=== PATIENT | male | born 1990 | race Caucasian/White ===

== ENCOUNTER 2016-12-10 21:43 | Emergency (ER) | payer BC ==
[2016-12-10 21:51] VITALS: O2SAT 97
[2016-12-10] MEDS ORDERED: NORCO 5/325 MG PO ONE (22:05)
[2016-12-10] MEDS ORDERED: NORCO 5/325 MG ONE (22:08)
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
[2016-12-10 22:56] VITALS: BP 132/67; PULSE 86
--- NOTE | 2016-12-11 09:12 | XRAY ---
Indication: Left lower rib pain following sports injury. Comparison: None 2 views of the left ribs obtained. No bony, articular, or soft tissue abnormalities.
== END 2016-12-10 22:58 | disposition home or self-care (01) ==
LOC: ED 21:43
DX: S20.212A Contusion of left front wall of thorax, initial encounter (principal); W51.XXXA Accidental striking against or bumped into by another person, initial encounter; Y93.64 Activity, baseball; R07.81 Pleurodynia
CPT/HCPCS: 71100; 99283; A9270-GY

== ENCOUNTER 2017-01-07 22:08 | Emergency (ER) | payer BC ==
[2017-01-07] MEDS ORDERED: MORPHINE SULFATE 4 MG INJ IV ONE (23:13)
[2017-01-07] MEDS ORDERED: Phenergan 25 MG INJ IV ONE (23:13)
[2017-01-07] MEDS ORDERED: Sodium Chloride 0.9% 1000 ML 1,000 ML IV STA (23:13)
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
[2017-01-07] MEDS ORDERED: Phenergan 25 MG INJ ONE (23:27)
[2017-01-07] MEDS ORDERED: Sodium Chloride 0.9% 1000 ML 1,000 ML ONE (23:28)
[2017-01-07] MEDS ORDERED: MORPHINE SULFATE 4 MG INJ ONE (23:28)
[2017-01-07 23:41] LABS: Mean Cell Volume 94.1 fl (78-100); Mean Corpuscular Hemoglobin 30.9 pg (26-32); Mean Platelet Volume 11.1 fl (6-9.5); Platelet Count 225 K/mm3 (150-450); Red Cell Distribution Width 12.9 % (11.5-14.0); White Blood Count 17.5 K/mm3 (4.0-10.5)
[2017-01-07] MEDS ORDERED: ROCEPHIN 1 Gm-D5w 50 ml Bag** 1 G/50 ML IVPB IV STA (23:58)
[2017-01-08] MEDS ORDERED: ROCEPHIN 1 Gm-D5w 50 ml Bag** 1 G/50 ML IVPB IV ONE (00:01)
[2017-01-08 00:11] LABS: ALBUMIN 3.8 g/dL (3.4-5.0); ALKALINE PHOSPHATASE 59 U/L (46-116); ANION GAP 16.5 MEQ/L (5-15); BLOOD UREA NITROGEN 11 mg/dL (9-20); CHLORIDE 102 mEq/L (98-107); Carbon Dioxide 23.5 mEq/L (21-32); Glucose 121 MG/DL (70-110); LIPASE 67 U/L (73-393); Potassium 3.7 mEq/L (3.5-5.1); SGOT/AST 14 U/L (15-37); SGPT/ALT 19 U/L (12-78); SODIUM 138 mEq/L (136-145); Total Protein 7.3 gm/dL (6.4-8.2)
[2017-01-08] MEDS ORDERED: Zofran 4 MG/2 ML VIAL IV ONE (00:13)
[2017-01-08] MEDS ORDERED: MORPHINE SULFATE 4 MG INJ IV ONE (00:13)
[2017-01-08] MEDS ORDERED: Zofran 4 MG/2 ML VIAL ONE (00:28)
[2017-01-08] MEDS ORDERED: MORPHINE SULFATE 4 MG INJ ONE (00:28)
[2017-01-08 00:34] LABS: ADD URINE CULTURE? YES (NO); Bilirubin SMALL (NEGATIVE); COMPLETE URINE MICROSCOPIC? YES; Collection Type CLEAN CATCH; Glucose NEGATIVE (NEGATIVE); Leukocyte Esterase NEGATIVE (NEGATIVE)
[2017-01-08 00:35] LABS: Bacteria FEW /HPF (NEGATIVE); Epithelial Cells FEW /HPF (FEW); Mucus MODERATE /HPF (NEGATIVE)
[2017-01-08 00:42] VITALS: PULSE 90
[2017-01-08 01:01] VITALS: BP 119/63; O2SAT 99
[2017-01-08 02:08] LABS: ATYPICAL LYMPHS 4 %; Platelet Estimate NORMAL (NORMAL); Total Cells Counted 100
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
== END 2017-01-08 01:04 | disposition home or self-care (01) ==
LOC: ED 22:08
DX: J02.0 Streptococcal pharyngitis (principal); J03.00 Acute streptococcal tonsillitis, unspecified; R11.10 Vomiting, unspecified
CPT/HCPCS: 36000; 36415; 74022; 80053; 81000; 82150; 83690; 85025; 86308; 87040; 87086; 87430; 96360; 96365; 96374; 96375; 99284; J0696; J2270; J2405; J2550

== ENCOUNTER 2017-04-02 21:33 | Emergency (ER) | payer BC ==
[2013-01-08 21:29] VITALS: BP 124/87
== END 2017-04-02 22:23 | disposition left against medical advice (07) ==
LOC: ED 21:33
DX: Z53.9 Procedure and treatment not carried out, unspecified reason (principal)

== ENCOUNTER 2017-04-25 21:40 | Emergency (ER) | payer BC ==
[2017-04-25] MEDS ORDERED: DUONEB 0.5-3 MG/3 ml Neb IH ONE ×2 (22:13→22:22)
[2017-04-25] MEDS ORDERED: TORAdol 30 mg Injection IM ONE (22:17)
[2017-04-25] MEDS ORDERED: TORAdol 30 mg Injection ONE (22:21)
[2017-04-25 22:39] LABS: A-aADO2 7; ARTERIAL BLD GAS O2 SATURATION 98.2 % (95-100); ARTERIAL BLOOD GAS BASE EXCESS 4.6 (-2.0-2.0); ARTERIAL BLOOD GAS FIO2 21 %; ARTERIAL BLOOD GAS PO2 90 mmHg (75-100); ARTERIAL BLOOD GAS pH 7.45 (7.35-7.45)
[2017-04-25] MEDS ORDERED: SILVADENE 50 GM TP ONE ×2 (22:51→22:57)
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
[2017-04-25 23:11] VITALS: BP 134/86; PULSE 96; O2SAT 97
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
== END 2017-04-25 23:12 | disposition home or self-care (01) ==
LOC: ED 21:40
DX: T20.10XA Burn of first degree of head, face, and neck, unspecified site, initial encounter (principal); R06.02 Shortness of breath; X00.1XXA Exposure to smoke in uncontrolled fire in building or structure, initial encounter
CPT/HCPCS: 36600; 71020; 82375; 82803; 94640; 96372; 99284; J1885; A9270-GY

== ENCOUNTER 2017-06-16 17:08 | Emergency (ER) | payer BC ==
[2017-06-16] MEDS ORDERED: Sodium Chloride 0.9% 1000 ML 1,000 ML ONE (17:41)
[2017-06-16] MEDS ORDERED: TORAdol 30 mg Injection ONE (17:41)
[2017-06-16] MEDS ORDERED: BABY ASPIRIN 81 MG CHEW ONE (17:41)
[2017-06-16] MEDS: BABY ASPIRIN 81 MG CHEW PO ONE (17:42)
[2017-06-16] MEDS: TORAdol 30 mg Injection IV ONE (17:42)
--- NOTE | 2017-06-16 17:42 | ERPHSYRPT ---
- History of Present Illness Time Seen by Provider: 06/16/17 17:32 Source: patient Exam Limitations: no limitations Patient Subjective Stated Complaint: chest pain for one hour. states is a "6" and is sharp. denies any cough or any other symptoms at this time. Triage Nursing Assessment: ambulated to room per self. skin w/d, color normal, resp easy. holding chest at times. describes pain as a cramp and is sharp. no edema noted. heart tones regular. Physician History: This is a 27-year-old white male with history of GERD, hernia, degenerative disc disease, acid reflux, foraminal stenosis. Patient arrives with complaint of sharp pain left lateral chest symptoms for one hour states is constant but worse with deep breathing. He states it came on with no activity he states it definitely worse when he breathes he is not short of breath he has no coughs he has no nausea no vomiting. Past medical history includes GERD, hernia, degenerative disc disease, acid reflux, foraminal stenosis Past surgical history includes adenoids, hernia repair, orthopedic surgery, shoulder surgery. Social history positive for occasional alcohol use Timing/Duration: today (one hour prior to arrival) Severity: moderate Modifying Factors: Improves With: other (worse with deep breathing) Associated Symptoms: chest pain (sharp chest pain left lateral chest worse with deep breathing), No nausea, No vomiting, No abdominal pain, No shortness of breath, No heartburn, No diaphoresis, No cough, No chills, No fever, No headaches, No loss of appetite, No malaise, No rash, No syncope, No seizure, No weakness Allergies/Adverse Reactions: metaxalone [From Skelaxin] Adverse Reaction (Verified 06/16/17 17:20) Nausea Home Medications: Lansoprazole [Prevacid 24Hr] 15 mg PO DAILY 06/16/17 [History] Hx Tetanus, Diphtheria Vaccination/Date Given: Yes Hx Influenza Vaccination/Date Given: No Hx Pneumococcal Vaccination/Date Given: No - Review of Systems Constitutional: No Fever, No Chills Eyes: No Symptoms Ears, Nose, & Throat: No Symptoms Respiratory: Other (pain with deep breathing left lateral chest) Cardiac: Chest Pain (sharp chest pain worse with deep breathing left lateral chest) Abdominal/Gastrointestinal: No Abdominal Pain, No Nausea, No Vomiting, No Diarrhea Genitourinary Symptoms: No Dysuria Musculoskeletal: No Back Pain, No Neck Pain Skin: No Rash Neurological: No Dizziness, No Focal Weakness, No Sensory Changes Psychological: No Symptoms Endocrine: No Symptoms All Other Systems: Reviewed and Negative - Past Medical History Pertinent Past Medical History: Yes Neurological History: No Pertinent History ENT History: No Pertinent History Cardiac History: No Pertinent History Respiratory History: No Pertinent History Endocrine Medical History: No Pertinent History Musculoskeletal History: Degenerative Disk Disease, Fractures, Other GI Medical History: GERD, Hernia History: No Pertinent History Psycho-Social History: No Pertinent History Male Reproductive Disorders: No Pertinent History Other Medical History: ACID REFLUX. forametal stenosis - Past Surgical History Past Surgical History: Yes Neuro Surgical History: No Pertinent History Cardiac: No Pertinent History Respiratory: No Pertinent History Gastrointestinal: Hernia Repair Genitourinary: No Pertinent History Musculoskeletal: Orthopedic Surgery Male Surgical History: No Pertinent History Other Surgical History: shoulder - Social History Smoking Status: Current every day smoker How long have you smoked: 10 Exposure to second hand smoke: No Drug Use: none Patient Lives Alone: No - Nursing Vital Signs Nursing Vital Signs: Initial Vital Signs Temperature 98.1 F 06/16/17 17:12 Pulse Rate 98 H 06/16/17 17:12 Respiratory Rate 18 06/16/17 17:12 O2 Sat by Pulse Oximetry 100 06/16/17 17:12 Pain Scale Pain Intensity 9 - Physical Exam General Appearance: mild distress Eye Exam: PERRL/EOMI, eyes nml inspection Ears, Nose, Throat Exam: normal ENT inspection, TMs normal, pharynx normal, moist mucous membranes Neck Exam: normal inspection, non-tender, supple, full range of motion Respiratory Exam: normal breath sounds, other (pain with deep breathing left lateral chest) Cardiovascular Exam: regular rate/rhythm, normal heart sounds, normal peripheral pulses Gastrointestinal/Abdomen Exam: soft, normal bowel sounds, No tenderness, No mass Back Exam: normal inspection, normal range of motion, No CVA tenderness, No vertebral tenderness Extremity Exam: normal inspection, normal range of motion, pelvis stable Neurologic Exam: alert, oriented x 3, cooperative, control system manager II-XII nml as tested, normal mood/affect, nml cerebellar function, nml station & gait, sensation nml, No motor deficits Skin Exam: normal color, warm, dry, No rash Lymphatic Exam: No adenopathy SpO2 Interpretation: normal (100%) SpO2: 100 Oxygen Delivery: Room Air - Course Nursing assessment & vital signs reviewed: Yes EKG Interpreted by Me: RATE (95 bpm), Right [place] Deviation, Other (EKG: Sinus arrhythmia, 95 bpm, right axis deviation, no acute ST or T wave changes noted) Ordered Tests: Active Orders 24 hr Category Date Time Status Bearing Machine Operator STAT Care 06/16/17 17:37 Active EKG-ER Only STAT Care 06/16/17 17:36 Active IV Insertion STAT Care 06/16/17 17:36 Active CHEST 1 VIEW (PORTABLE) Stat Exams 06/16/17 17:37 Taken AMYLASE Stat Lab 06/16/17 17:43 Completed CBC W DIFF Stat Lab 06/16/17 17:43 Completed CMP Stat Lab 06/16/17 17:43 Completed D-DIMER QUANTITATION Stat Lab 06/16/17 17:43 Completed LIPASE Stat Lab 06/16/17 17:43 Completed TROPONIN Q3H Lab 06/16/17 17:43 Completed TROPONIN Q3H Lab 06/16/17 20:45 Ordered TROPONIN Q3H Lab 06/16/17 23:45 Ordered TROPONIN Q3H Lab 06/17/17 02:45 Ordered TROPONIN Q3H Lab 06/17/17 05:45 Ordered Medication Summary Generic Name Dose Route Start Last Admin Trade Name Freq PRN Reason Stop Dose Admin Sodium Chloride 1,000 mls @ 100 mls/hr 06/16/17 17:45 06/16/17 17:43 Sodium Chloride 0.9% 1000 Ml IV 07/16/17 17:44 100 mls/hr .Q10H FAVIAN Administration Discontinued Medications Generic Name Dose Route Start Last Admin Trade Name Freq PRN Reason Stop Dose Admin Aspirin 324 mg 06/16/17 17:36 06/16/17 17:42 Baby Aspirin 81 Mg Chew PO 06/16/17 17:37 324 mg STAT ONE Administration Aspirin Confirm 06/16/17 17:41 Baby Aspirin 81 Mg Chew Administered 06/16/17 17:42 Dose 324 mg .ROUTE .STK-MED ONE Ketorolac Tromethamine 30 mg 06/16/17 17:37 06/16/17 17:42 Toradol 30 Mg Injection IV 06/16/17 17:38 30 mg STAT ONE Administration Ketorolac Tromethamine Confirm 06/16/17 17:41 Toradol 30 Mg Injection Administered 06/16/17 17:42 Dose 30 mg .ROUTE .STK-MED ONE Morphine Sulfate 4 mg 06/16/17 18:08 06/16/17 18:12 Morphine Sulfate 4 Mg Inj IV 06/16/17 18:09 4 mg STAT ONE Administration Morphine Sulfate Confirm 06/16/17 18:12 Morphine Sulfate 4 Mg Inj Administered 06/16/17 18:13 Dose 4 mg .ROUTE .STK-MED ONE Lab/Rad Data: Laboratory Result Diagrams 06/16/17 17:43 06/16/17 17:43 Laboratory Results 06/16/17 06/16/17 06/16/17 Range/Units 17:43 17:43 17:43 WBC (4.0-10.5) K/mm3 RBC (4.1-5.6) M/mm3 Hgb (12.5-18.0) gm/dl Hct (42-50) % MCV (78-100) fl MCH (26-32) pg MCHC (32-36) g/dl RDW (11.5-14.0) % Plt Count (150-450) K/mm3 MPV (6-9.5) fl Gran % (36.0-66.0) % Lymphocytes % (24.0-44.0) % Monocytes % (0.0-12.0) % Eosinophils % (0.00-5.0) % Basophils % (0.0-0.4) % Basophils # (0-0.4) D-Dimer < 215 (0-500) ng/mL Sodium 139 (136-145) mEq/L Potassium 3.4 L (3.5-5.1) mEq/L Chloride 104 (98-107) mEq/L Carbon Dioxide 27.6 (21-32) mEq/L Anion Gap 10.7 (5-15) MEQ/L BUN 9 (9-20) mg/dL Creatinine 0.88 (0.55-1.30) mg/dl Estimated GFR > 60 ML/MIN Glucose 103 (70-110) MG/DL Calcium 9.0 (8.5-10.1) mg/dL Total Bilirubin 0.30 (0.2-1.0) mg/dL AST 18 (15-37) U/L ALT 22 (12-78) U/L Alkaline Phosphatase 40 L (46-116) U/L Troponin I < 0.017 (0.000-0.056) ng/ml Serum Total Protein 7.0 (6.4-8.2) gm/dL Albumin 3.8 (3.4-5.0) g/dL Amylase 58 (25-115) U/L Lipase 123 (73-393) U/L 06/16/17 Range/Units 17:43 WBC 8.7 (4.0-10.5) K/mm3 RBC 4.60 (4.1-5.6) M/mm3 Hgb 14.0 (12.5-18.0) gm/dl Hct 43.6 (42-50) % MCV 94.8 (78-100) fl MCH 30.4 (26-32) pg MCHC 32.1 (32-36) g/dl RDW 12.9 (11.5-14.0) % Plt Count 274 (150-450) K/mm3 MPV 10.5 H (6-9.5) fl Gran % 59.1 (36.0-66.0) % Lymphocytes % 26.0 (24.0-44.0) % Monocytes % 10.7 (0.0-12.0) % Eosinophils % 3.9 (0.00-5.0) % Basophils % 0.3 (0.0-0.4) % Basophils # 0.03 (0-0.4) D-Dimer (0-500) ng/mL Sodium (136-145) mEq/L Potassium (3.5-5.1) mEq/L Chloride (98-107) mEq/L Carbon Dioxide (21-32) mEq/L Anion Gap (5-15) MEQ/L BUN (9-20) mg/dL Creatinine (0.55-1.30) mg/dl Estimated GFR ML/MIN Glucose (70-110) MG/DL Calcium (8.5-10.1) mg/dL Total Bilirubin (0.2-1.0) mg/dL AST (15-37) U/L ALT (12-78) U/L Alkaline Phosphatase (46-116) U/L Troponin I (0.000-0.056) ng/ml Serum Total Protein (6.4-8.2) gm/dL Albumin (3.4-5.0) g/dL Amylase (25-115) U/L Lipase (73-393) U/L - Progress Progress: improved Progress Note: 06/16/17 19:02 27-year-old white male arrives with complaint of sharp pain left lateral chest worse with breathing occurred one hour prior to arrival. No shortness of breath no nausea no vomiting. Patient's EKG sinus arrhythmia at 95 beats for minute right axis deviation no acute ST or T wave changes noted d-dimer within normal limits at less than 215, troponin within normal limits CBC normal chest x-ray no acute disease process noted chemistry is remarkable for a potassium of 3.4 Patient was given IV normal saline, aspirin 324 mg orally Toradol 30 mg IV and morphine 4 mg IV. Patient is improved but still has some pain in the left lateral chest definitely worse with breathing. I have offered to obtain a repeat troponin on this patient 3 hours after last draw and have told him I cannot completely rule out cardiac etiology without doing this. The patient states he really doesn't think he has any chest pain and he does not want to stay for repeat troponin, Will plan to discharge patient with Arg[place] for pain plenty of fluids he will be given 20 mEq of potassium here in the emergency room, Patient is stable, - Departure Time of Disposition: 19:04 Departure Disposition: Home Clinical Impression: Non-cardiac chest pain, Pleurisy, mild hypokalemia Condition: Fair Critical Care Time: No Referrals: NAVIN FUCHS MD [Primary Care Provider] - Additional Instructions: Return home. Plenty of fluids. Arg[place] 5/325 #12 one orally every 4-6 hours as needed for pain. Increase potassium in your diet i.e. bananas. Follow-up with your family doctor. Return for acute distress or for severe symptoms. Prescriptions: Hydrocodone/Acetaminophen [Arg[place] 5-325 Tablet] 1 tab PO Q4-6HPRN PRN #12 tablet MDD 6 tablets PRN Reason: pain
[2017-06-16] MEDS: Sodium Chloride 0.9% 1000 ML 1,000 ML IV SCH (17:43)
[2017-06-16 17:53] LABS: BASOPHIL % 0.3 % (0.0-0.4); Basophil (Absolute #) 0.03 (0-0.4); Eosinophil % 3.9 % (0.00-5.0); Eosinophil (Absolute #) 0.34 (0-0.5); Granulocyte Absolute (ANC) 5.13 (1.4-6.9); Granulocytes % 59.1 % (36.0-66.0); Hematocrit 43.6 % (42-50); Lymphocyte (Absolute #) 2.26 (1.0-4.6); Mean Cell Volume 94.8 fl (78-100); Mean Corpuscular Hemoglobin 30.4 pg (26-32); Mean Corpuscular Hgb Concent. 32.1 g/dl (32-36); Mean Platelet Volume 10.5 fl (6-9.5); Monocyte (Absolute #) 0.93 (0.0-1.3); Monocytes % 10.7 % (0.0-12.0); Platelet Count 274 K/mm3 (150-450); Red Cell Distribution Width 12.9 % (11.5-14.0); White Blood Count 8.7 K/mm3 (4.0-10.5)
[2017-06-16 18:09] VITALS: BP 118/76; PULSE 82
[2017-06-16] MEDS: MORPHINE SULFATE 4 MG INJ IV ONE (18:12)
[2017-06-16] MEDS ORDERED: MORPHINE SULFATE 4 MG INJ ONE (18:12)
[2017-06-16 18:21] LABS: ALBUMIN 3.8 g/dL (3.4-5.0); ALKALINE PHOSPHATASE 40 U/L (46-116); AMYLASE 58 U/L (25-115); ANION GAP 10.7 MEQ/L (5-15); BLOOD UREA NITROGEN 9 mg/dL (9-20); CHLORIDE 104 mEq/L (98-107); Carbon Dioxide 27.6 mEq/L (21-32); Creatinine 1 0.88 mg/dl (0.55-1.30); EST GLOMERULAR FILTRATION RATE > 60 ML/MIN; Glucose 103 MG/DL (70-110); LIPASE 123 U/L (73-393); Potassium 3.4 mEq/L (3.5-5.1); SGOT/AST 18 U/L (15-37); SGPT/ALT 22 U/L (12-78); SODIUM 139 mEq/L (136-145)
[2017-06-16 19:07] VITALS: O2SAT 100
[2017-06-16] MEDS ORDERED: Klor Con 10 MEQ PO ONE (19:19)
[2017-06-16] MEDS ORDERED: NORCO 5/325 MG ONE (19:20)
[2017-06-16] MEDS: Klor Con 10 MEQ PO ONE (19:23)
[2017-06-16] MEDS: NORCO 5/325 MG PO ONE (19:23)
--- NOTE | 2017-06-17 08:39 | XRAY ---
Indication: Chest pain. Comparison: April 25, 2017. Portable chest again demonstrates normal heart, lungs, and bony thorax with incidental left lung calcified granuloma.
== END 2017-06-16 19:50 | disposition home or self-care (01) ==
LOC: ED 17:08
DX: R07.89 Other chest pain (principal); R09.1 Pleurisy; E87.6 Hypokalemia; K21.9 Gastro-esophageal reflux disease without esophagitis
CPT/HCPCS: 36000; 36415; 71045; 80053; 82150; 83690; 84484; 85025; 85379; 93005; 93041; 96360; 96374; 96375; 99284; J1885; J2270; A9270-GY

== ENCOUNTER 2017-11-29 20:43 | Emergency (ER) | payer BC, OTHER ==
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
[2017-11-29] MEDS ORDERED: BACIGUENT PACKET TP ONE (21:17)
[2017-11-29] MEDS ORDERED: TORAdol 30 mg Injection IM ONE (21:17)
[2017-11-29] MEDS ORDERED: TORAdol 30 mg Injection ONE (21:19)
[2017-11-29] MEDS ORDERED: BACIGUENT PACKET ONE (21:19)
[2017-11-29 21:43] VITALS: BP 123/79
[2017-11-29] MEDS ORDERED: NORCO 5/325 MG PO ONE (21:44)
[2017-11-29 21:56] VITALS: PULSE 88; O2SAT 100
[2017-11-29] MEDS ORDERED: NORCO 5/325 MG ONE (21:56)
== END 2017-11-29 22:01 | disposition home or self-care (01) ==
LOC: ED 20:43
DX: T22.112A Burn of first degree of left forearm, initial encounter (principal); X19.XXXA Contact with other heat and hot substances, initial encounter; Y93.89 Activity, other specified; Y99.0 Civilian activity done for income or pay
CPT/HCPCS: 96372; 99283; J1885; A9270-GY

== ENCOUNTER 2018-08-14 18:05 | Emergency (ER) | payer BC ==
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
[2018-08-14] MEDS ORDERED: MOTRIN 600 MG ONE (19:12)
[2018-08-14] MEDS: MOTRIN 600 MG PO ONE (19:13)
[2018-08-14 19:22] VITALS: BP 130/67; PULSE 70; O2SAT 97
--- NOTE | 2018-08-15 08:38 | XRAY ---
Indication: Pain. Third finger laceration following mower injury. Comparison: None. 3 views of the right wrist obtained. No bony, articular, or soft tissue abnormalities.
--- NOTE | 2018-08-15 08:41 | XRAY ---
Indication: Third finger laceration following mower injury. Comparison: October 05, 2011. 3 views of the right hand obtained. No bony, articular, or soft tissue abnormalities.
== END 2018-08-14 19:26 | disposition home or self-care (01) ==
LOC: ED 18:05
DX: S60.221A Contusion of right hand, initial encounter (principal); S66.911A Strain of unspecified muscle, fascia and tendon at wrist and hand level, right hand, initial encounter; W22.8XXA Striking against or struck by other objects, initial encounter; M79.89 Other specified soft tissue disorders; S60.410A Abrasion of right index finger, initial encounter; M79.641 Pain in right hand; K21.9 Gastro-esophageal reflux disease without esophagitis
CPT/HCPCS: 29126; 73110; 73130; 99284; A9270-GY

== ENCOUNTER 2018-11-10 01:07 | Emergency (ER) | payer BC, MEDICAID ==
--- NOTE | 2018-11-10 01:19 | ERPHSYRPT ---
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 pt able to walk on it but hurts to do so. Method of Injury: direct blow (from a dropped cinder block) Occurred: hours ago (4) Quality: aching, throbbing Severity of Pain-Max: moderate Severity of Pain-Current: moderate Lower Extremities Pain: foot: right Modifying Factors: Improves With: movement Associated Symptoms: other (hurts to bear weight) Allergies/Adverse Reactions: metaxalone [From Skelaxin] Adverse Reaction (Verified 11/10/18 01:11) Nausea Home Medications: Famotidine [Pepcid AC] 10 mg PO DAILY 07/17/18 [History] Omeprazole 10 mg PO DAILY 07/17/18 [History] Hx Tetanus, Diphtheria Vaccination/Date Given: Yes Hx Influenza Vaccination/Date Given: No Hx Pneumococcal Vaccination/Date Given: No - Review of Systems Constitutional: No Symptoms Eyes: No Symptoms Ears, Nose, & Throat: No Symptoms Respiratory: No Symptoms Cardiac: No Symptoms Abdominal/Gastrointestinal: No Symptoms Genitourinary Symptoms: No Symptoms Musculoskeletal: Injury ( right foot) Skin: No Symptoms Neurological: No Symptoms Psychological: No Symptoms Endocrine: No Symptoms Hematologic/Lymphatic: No Symptoms Immunological/Allergic: No Symptoms All Other Systems: Reviewed and Negative - Past Medical History Pertinent Past Medical History: Yes Neurological History: No Pertinent History ENT History: No Pertinent History Cardiac History: No Pertinent History Respiratory History: No Pertinent History Endocrine Medical History: No Pertinent History Musculoskeletal History: Degenerative Disk Disease, Fractures, Other GI Medical History: GERD, Hernia History: No Pertinent History Psycho-Social History: No Pertinent History Male Reproductive Disorders: No Pertinent History Other Medical History: ACID REFLUX. forametal stenosis - Past Surgical History Past Surgical History: Yes Neuro Surgical History: No Pertinent History Cardiac: No Pertinent History Respiratory: No Pertinent History Gastrointestinal: Hernia Repair Genitourinary: No Pertinent History Musculoskeletal: Orthopedic Surgery Male Surgical History: No Pertinent History Other Surgical History: shoulder - Social History Smoking Status: Current every day smoker How long have you smoked: 12 years Exposure to second hand smoke: No Drug Use: none Patient Lives Alone: No - Nursing Vital Signs Nursing Vital Signs: Initial Vital Signs Temperature 98.6 F 11/10/18 01:12 Pulse Rate 99 H 11/10/18 01:12 Respiratory Rate 18 11/10/18 01:12 Blood Pressure 147/89 11/10/18 01:12 O2 Sat by Pulse Oximetry 99 11/10/18 01:12 Pain Scale Pain Intensity 7 - Physical Exam General Appearance: mild distress, alert, anxiety Eyes, Ears, Nose, Throat Exam: normal ENT inspection, moist mucous membranes Neck Exam: normal inspection, non-tender, supple, full range of motion Cardiovascular/Respiratory Exam: chest non-tender Gastrointestinal/Abdominal Exam: non-tender Back Exam: normal inspection, normal range of motion, No CVA tenderness, No vertebral tenderness Hips Exam: bilateral: non-tender, normal inspection, normal range of motion, no evidence of injury Legs Exam: bilateral leg: non-tender, normal inspection, normal range of motion , no evidence of injury Knees Exam: bilateral knee: non-tender, normal inspection, normal range of motion, no evidence of injury Ankle Exam: bilateral ankle: non-tender, normal inspection, normal range of motion, no evidence of injury Foot Exam: right foot: ecchymosis, limited range of motion, soft tissue tenderness, swelling, left foot: non-tender, normal inspection, normal range of motion, no evidence of injury Neuro/Tendon Exam: normal sensation, normal motor functions, normal tendon functions, responds to pain Mental Status Exam: alert, oriented x 3, cooperative Skin Exam: ecchymosis SpO2 Interpretation: normal O2 Delivery: Room Air Ordered Tests: Active Orders 24 hr Category Date Time Status FOOT (MINIMUM 3 VIEWS) Stat Exams 11/10/18 01:20 Taken Medication Summary Discontinued Medications Generic Name Dose Route Start Last Admin Trade Name Luiz PRN Reason Stop Dose Admin Oxycodone/Acetaminophen 1 tab 11/10/18 01:23 11/10/18 01:24 Percocet Tablet 5/325mg PO 11/10/18 01:24 1 tab STAT STA Administration Oxycodone/Acetaminophen Confirm 11/10/18 01:24 Percocet Tablet 5/325mg Administered 11/10/18 01:25 Dose 1 tab .ROUTE .STK-MED ONE - Progress Progress: improved Progress Note: 11/10/18 02:32 night radiology read-no acute process Counseled pt/family regarding: diagnosis, need for follow-up, rad results - Departure Departure Disposition: Home Clinical Impression: Contusion, foot Condition: Stable Critical Care Time: No Referrals: NAVIN FUCHS MD [Primary Care Provider] - Additional Instructions: ice pack to area 3 times daily for 3 days. add ibuprofen or naproxen for pain with food. follow up with primary doctor for persistent symptoms Prescriptions: Oxycodone HCl/Acetaminophen [Percocet 5-325 mg Tablet] 1 each PO Q12H PRN PRN # 6 tablet MDD 2 PRN Reason: Pain
[2018-11-10] MEDS ORDERED: PERCOCET TABLET 5/325MG PO STA (01:23)
[2018-11-10] MEDS ORDERED: PERCOCET TABLET 5/325MG ONE (01:24)
[2018-11-10 02:29] VITALS: BP 133/90; PULSE 93; O2SAT 97
--- NOTE | 2018-11-10 09:40 | XRAY ---
Exam: 3 view right foot exam from 11/10/2018. Comparison: Two-view left foot series from 08/16/2015. Indication: 28-year-old male with injury/trauma, patient's foot crushed by cinderblock, injury on 11/09/2018, difficult to bear weight. Findings: AP, oblique, and lateral radiographs of the left foot were obtained. I see no acute right foot fracture or dislocation. Metatarsals are aligned correctly with the metatarsals on all images. 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 There is a normal plantar arch. No radiopaque soft tissue foreign body is seen. The joint spaces appear unremarkable. Impression: 1. No acute fracture or dislocation of the right foot is seen.
== END 2018-11-10 02:43 | disposition home or self-care (01) ==
LOC: ED 01:07
DX: S90.31XA Contusion of right foot, initial encounter (principal); W20.8XXA Other cause of strike by thrown, projected or falling object, initial encounter; Y93.89 Activity, other specified
CPT/HCPCS: 73630; 99283; A9270-GY

== ENCOUNTER 2018-12-11 13:10 | Emergency (ER) | payer MEDICAID ==
--- NOTE | 2018-12-11 13:27 | ERPHSYRPT ---
- History of Present Illness Time Seen by Provider: 12/11/18 13:23 Source: patient Physician History: This is a 28-year-old white male with history of degenerative disc disease, fractures, GERD, hernia, acid reflux, or foraminal stenosis. Patient arrives with complaint of pain on his left posterior lateral hip and pelvis, pain in his left ankle pain in his left foot symptoms since 30 minutes. According to patient he felt approximately 10 feet off a ladder apparently he bounced onto the ladder which was between him and his leg he complains of pain in the left ankle foot and left hip. Past medical history includes degenerative disc disease, fractures, GERD, hernia , acid reflux, foraminal stenosis Past surgical history includes hernias repair, shoulder surgery Social history positive tobacco occasional alcohol denies illicit drug use. Timing/Duration: today (330 minutes prior to arri) Severity: moderate Modifying Factors: Improves With: nothing Associated Symptoms: No nausea, No vomiting, No abdominal pain, No shortness of breath, No heartburn, No cough, No chills, No chest pain, No fever, No headaches , No loss of appetite, No malaise, No rash, No syncope, No seizure, No weakness Allergies/Adverse Reactions: metaxalone [From Skelaxin] Adverse Reaction (Verified 12/11/18 13:28) Nausea Home Medications: Omeprazole 10 mg PO DAILY 07/17/18 [History] Hx Tetanus, Diphtheria Vaccination/Date Given: Yes Hx Influenza Vaccination/Date Given: No Hx Pneumococcal Vaccination/Date Given: No - Review of Systems Constitutional: No Fever, No Chills Eyes: No Symptoms Ears, Nose, & Throat: No Symptoms Respiratory: No Cough, No Dyspnea Cardiac: No Chest Pain, No Edema, No Syncope Abdominal/Gastrointestinal: No Abdominal Pain, No Nausea, No Vomiting, No Diarrhea Genitourinary Symptoms: No Dysuria Musculoskeletal: Fall, Other (pain in left posterior hip, and pelvis, , left ankle left foot) Skin: No Rash Neurological: No Dizziness, No Focal Weakness, No Sensory Changes Psychological: No Symptoms Endocrine: No Symptoms All Other Systems: Reviewed and Negative - Past Medical History Pertinent Past Medical History: Yes Neurological History: No Pertinent History ENT History: No Pertinent History Cardiac History: No Pertinent History Respiratory History: No Pertinent History Endocrine Medical History: No Pertinent History Musculoskeletal History: Degenerative Disk Disease, Fractures, Other GI Medical History: GERD, Hernia History: No Pertinent History Psycho-Social History: No Pertinent History Male Reproductive Disorders: No Pertinent History Other Medical History: ACID REFLUX. forametal stenosis - Past Surgical History Past Surgical History: Yes Neuro Surgical History: No Pertinent History Cardiac: No Pertinent History Respiratory: No Pertinent History Gastrointestinal: Hernia Repair Genitourinary: No Pertinent History Musculoskeletal: Orthopedic Surgery Male Surgical History: No Pertinent History Other Surgical History: shoulder - Social History Smoking Status: Current every day smoker How long have you smoked: 12 years Exposure to second hand smoke: No Drug Use: none Patient Lives Alone: No - Nursing Vital Signs Nursing Vital Signs: Initial Vital Signs Temperature 98.0 F 12/11/18 13:15 Pulse Rate 86 12/11/18 13:15 Blood Pressure 131/78 12/11/18 13:15 O2 Sat by Pulse Oximetry 97 12/11/18 13:15 Pain Scale Pain Intensity 7 - Physical Exam General Appearance: mild distress, alert Eye Exam: PERRL/EOMI Ears, Nose, Throat Exam: normal ENT inspection, TMs normal, pharynx normal, moist mucous membranes Neck Exam: normal inspection, non-tender, supple, full range of motion Respiratory Exam: normal breath sounds, lungs clear, No respiratory distress Cardiovascular Exam: regular rate/rhythm, normal heart sounds, normal peripheral pulses, capillary refill <2 sec Gastrointestinal/Abdomen Exam: soft, normal bowel sounds, No tenderness, No mass Back Exam: normal inspection, normal range of motion, No CVA tenderness, No vertebral tenderness Extremity Exam: other (Pain with palpation left posterior hip and buttocks, , pain with palpation and movenent left ankle and dorsal foot) Neurologic Exam: alert, oriented x 3, cooperative, desk officer II-XII nml as tested, normal mood/affect, nml cerebellar function, nml station & gait, sensation nml, No motor deficits Skin Exam: normal color, warm, dry, No rash Lymphatic Exam: No adenopathy SpO2 Interpretation: normal - Course Nursing assessment & vital signs reviewed: Yes - Radiology Exams Left Hip X-ray Interpretation: Discussed w/ radiologist, Negative, No Fracture, No Subluxation Left Ankle X-ray Interpretation: Discussed w/ radiologist, Negative, No Subluxation Left Foot X-ray Interpretation: Discussed w/ radiologist, Negative, No Fracture, No Subluxation Ordered Tests: Active Orders 24 hr Category Date Time Status Crutches STAT Care 12/11/18 14:35 Active Splint STAT Care 12/11/18 14:35 Active ANKLE (3 VIEWS) Stat Exams 12/11/18 13:22 Completed FOOT (MINIMUM 3 VIEWS) Stat Exams 12/11/18 13:22 Completed HIP UNI (2V) INCL PEL IF DONE Stat Exams 12/11/18 13:22 Completed Medication Summary Discontinued Medications Generic Name Dose Route Start Last Admin Trade Name Luiz PRN Reason Stop Dose Admin Ketorolac Tromethamine 60 mg 12/11/18 13:30 12/11/18 13:34 Toradol 30 Mg Injection IM 12/11/18 13:31 60 mg STAT ONE Administration Ketorolac Tromethamine Confirm 12/11/18 13:31 Toradol 30 Mg Injection Administered 12/11/18 13:32 Dose 60 mg .ROUTE .STK-MED ONE - Progress Progress: improved Progress Note: 12/11/18 14:36 X-ray left hip and pelvis, left ankle, left foot, all negative Will place air cast left ankle give patient crutches small amount of [place] for pain. - Departure Departure Disposition: Home Clinical Impression: Left foot pain Accidental fall Qualifiers: Encounter type: initial encounter Qualified Code(s): W19.XXXA - Unspecified fall, initial encounter Contusion of left hip Qualifiers: Encounter type: initial encounter Qualified Code(s): S70.02XA - Contusion of left hip, initial encounter Left ankle strain Qualifiers: Encounter type: initial encounter Qualified Code(s): S96.912A - Strain of unspecified muscle and tendon at ankle and foot level, left foot, initial encounter Condition: Fair Critical Care Time: No Referrals: NAVIN FUCHS MD [Primary Care Provider] - Instructions: Contusion (DC), Preventing Falls Additional Instructions: Return home. Ice and elevate left hip left ankle left foot 24-48 hours. Crutches weightbearing as tolerated. [place] as prescribed for pain. Followup with your family doctor if symptoms are worse, no better in 48-72 hours , or persist longer than 1 week. Return for acute distress or for severe symptoms. Prescriptions: Hydrocodone/APAP 5-325 Tab^^^ [[place] 5-325 Tablet^^^] 1 tab PO Q6HPRN PRN #10 tablet MDD 6 PRN Reason: Pain
[2018-12-11] MEDS ORDERED: TORAdol 30 mg Injection IM ONE (13:30)
[2018-12-11] MEDS ORDERED: TORAdol 30 mg Injection ONE (13:31)
--- NOTE | 2018-12-11 14:29 | XRAY ---
Indication: Pain following 10 feet fall. Comparison: None AP pelvis and 2 views of the left hip obtained. No bony, articular, or soft tissue abnormalities.
--- NOTE | 2018-12-11 14:31 | XRAY ---
Indication: Pain following 10 feet fall. Comparison: August 16, 2015 3 nonweightbearing views of the left foot obtained. No bony, articular, or soft tissue abnormalities.
--- NOTE | 2018-12-11 14:31 | XRAY ---
Indication: Pain following 10 feet fall. Comparison: None 3 views of the left ankle obtained. No bony, articular, or soft tissue abnormalities.
[2018-12-11 14:50] VITALS: BP 111/64; PULSE 80; O2SAT 94
== END 2018-12-11 14:58 | disposition home or self-care (01) ==
LOC: ED 13:10
DX: S70.02XA Contusion of left hip, initial encounter (principal); S96.912A Strain of unspecified muscle and tendon at ankle and foot level, left foot, initial encounter; M25.552 Pain in left hip; W19.XXXA Unspecified fall, initial encounter
CPT/HCPCS: 73502; 73610; 73630; 96372; 99284; J1885

== ENCOUNTER 2018-12-14 21:11 | Emergency (ER) | payer MEDICAID ==
[2018-12-14] MEDS ORDERED: TYLENOL 325 MG PO ONE (21:36)
[2018-12-14] MEDS ORDERED: BACIGUENT PACKET TP ONE (21:37)
[2018-12-14] MEDS ORDERED: Adacel Vial IM ONE ×2 (21:37→21:47)
[2018-12-14] MEDS ORDERED: XYLOCAINE 1% HCL 20 ML MDV IJ ONE (21:37)
--- NOTE | 2018-12-14 21:42 | ERPHSYRPT ---
- History of Present Illness Time Seen by Provider: 12/14/18 21:32 Source: patient Exam Limitations: no limitations Patient Subjective Stated Complaint: pt states he hit his head on the corner of the cabinet about 2 hours ago. states he has been having buring and throbbing pain and bleeding has not completely stopped Triage Nursing Assessment: pt alert and oreinted, answers questions approp. pt ambulatory with steady gait noted, respirasions nonlabored with lungs cta. pupils equal and reacitive, bilat upper and lower ext strength equal and wnl. laceration to rt head approx 2 cm with no acitve bleeding at this time. Physician History: 28-year-old white male arrives with complaint of a 3 cm flap laceration to his right frontal temporal region symptoms for approximately 2 hours patient states he stood up and struck his head on a countertop he states he came in because he had bleeding from the area patient denies loss of consciousness he does state that he has a headache he has had no neurologic changes. Past medical history includes degenerative disc disease, fractures, GERD, hernia , acid reflux, foraminal stenosis. Past surgical history includes hernia repair, shoulder surgery Patient does say that he had 3 mics hard lemonade prior to arrival. . Timing/Duration: today Severity: moderate Modifying Factors: Improves With: ibuprofen. Worsens With: eating, immobilization, medication, movement, rest, acetaminophen, nothing Associated Symptoms: headaches, No nausea, No vomiting, No abdominal pain, No shortness of breath, No heartburn, No diaphoresis, No cough, No chills, No chest pain, No fever, No loss of appetite, No malaise, No rash, No syncope, No seizure, No weakness Allergies/Adverse Reactions: metaxalone [From Skelaxin] Adverse Reaction (Verified 12/14/18 21:27) Nausea Home Medications: Omeprazole 10 mg PO DAILY 07/17/18 [History] Hx Tetanus, Diphtheria Vaccination/Date Given: Yes Hx Influenza Vaccination/Date Given: No Hx Pneumococcal Vaccination/Date Given: No Immunizations Up to Date: Yes - Review of Systems Constitutional: Other (laceration right frontal temporial region), No Fever, No Chills Eyes: No Symptoms, Other (patient states he has blurry vision right eye from watering) Ears, Nose, & Throat: No Symptoms Respiratory: No Cough, No Dyspnea Cardiac: No Chest Pain, No Edema, No Syncope Abdominal/Gastrointestinal: No Abdominal Pain, No Nausea, No Vomiting, No Diarrhea Genitourinary Symptoms: No Dysuria Musculoskeletal: No Back Pain, No Neck Pain Skin: Other (3 cm flap laceration right frontal temporal region) Neurological: Headache, No Dizziness, No Focal Weakness, No Gait Changes, No Irritability, No Lethargy, No Paralysis, No Parasthesia, No Seizure, No Sensory Changes, No Speech Changes, No Tics, No Tremors, No Vertigo Psychological: No Symptoms Endocrine: No Symptoms All Other Systems: Reviewed and Negative - Past Medical History Pertinent Past Medical History: Yes Neurological History: No Pertinent History ENT History: No Pertinent History Cardiac History: No Pertinent History Respiratory History: No Pertinent History Endocrine Medical History: No Pertinent History Musculoskeletal History: Degenerative Disk Disease, Fractures, Other GI Medical History: GERD, Hernia History: No Pertinent History Psycho-Social History: No Pertinent History Male Reproductive Disorders: No Pertinent History Other Medical History: ACID REFLUX. forametal stenosis - Past Surgical History Past Surgical History: Yes Neuro Surgical History: No Pertinent History Cardiac: No Pertinent History Respiratory: No Pertinent History Gastrointestinal: Appendectomy, Hernia Repair Genitourinary: No Pertinent History Musculoskeletal: Orthopedic Surgery Male Surgical History: No Pertinent History Other Surgical History: shoulder - Social History Smoking Status: Current every day smoker How long have you smoked: 12 years Exposure to second hand smoke: No Drug Use: none Patient Lives Alone: No - Nursing Vital Signs Nursing Vital Signs: Initial Vital Signs Temperature 98.6 F 12/14/18 21:18 Pulse Rate 103 H 12/14/18 21:18 Respiratory Rate 18 12/14/18 21:18 Blood Pressure 136/80 12/14/18 21:18 O2 Sat by Pulse Oximetry 96 12/14/18 21:18 Pain Scale Pain Intensity 7 - Physical Exam General Appearance: mild distress, alert, other (head with 3 cm flap laceration right frontotemporal region) Eye Exam: PERRL/EOMI, eyes nml inspection, other (fundi unremarkable) Ears, Nose, Throat Exam: normal ENT inspection, TMs normal, pharynx normal, moist mucous membranes Neck Exam: normal inspection, non-tender, supple, full range of motion Respiratory Exam: normal breath sounds, lungs clear, No respiratory distress Cardiovascular Exam: regular rate/rhythm, normal heart sounds, normal peripheral pulses, capillary refill <2 sec Gastrointestinal/Abdomen Exam: soft, normal bowel sounds, No tenderness, No mass Back Exam: normal inspection, normal range of motion, No CVA tenderness, No vertebral tenderness Extremity Exam: normal inspection, normal range of motion, pelvis stable Neurologic Exam: alert, oriented x 3, cooperative, director instrumentation II-XII nml as tested, normal mood/affect, nml cerebellar function, nml station & gait, sensation nml, other (patient alert, oriented x3,, no facial droop, speech normal, normal finger to nose, rn angiography equal and symmetrical 5 over 5, full range of motion all extremities, sensation intact to all extremities, GCS equals 15.), No motor deficits Skin Exam: other (3 cm flap laceration right frontal temporal region) SpO2 Interpretation: normal (96%) SpO2: 96 - Course Nursing assessment & vital signs reviewed: Yes Ordered Tests: Active Orders 24 hr Category Date Time Status Prepare for Sutures STAT Care 12/14/18 21:37 Active Sutures STAT Care 12/14/18 21:37 Active Wound Care STAT Care 12/14/18 21:37 Active Medication Summary Discontinued Medications Generic Name Dose Route Start Last Admin Trade Name Freq PRN Reason Stop Dose Admin Acetaminophen 650 mg 12/14/18 21:36 Tylenol 325 Mg PO 12/14/18 21:37 STAT ONE Acetaminophen Confirm 12/14/18 21:47 Tylenol 325 Mg Administered 12/14/18 21:48 Dose 650 mg .ROUTE .STK-MED ONE Bacitracin Zinc 0.9 gm 12/14/18 21:37 Baciguent Packet TP 12/14/18 21:38 STAT ONE Bacitracin Zinc Confirm 12/14/18 21:47 Baciguent Packet Administered 12/14/18 21:48 Dose 1 gm .ROUTE .STK-MED ONE Diphtheria/Tetanus/Acell Pertussis 0.5 ml 12/14/18 21:37 Adacel Vial IM 12/14/18 21:38 .ONCE ONE Diphtheria/Tetanus/Acell Pertussis Confirm 12/14/18 21:47 Adacel Vial Administered 12/14/18 21:48 Dose 0.5 ml IM .STK-MED ONE Lidocaine HCl 5 ml 12/14/18 21:37 Xylocaine 1% Hcl 20 Ml Mdv IJ 12/14/18 21:38 STAT ONE Lidocaine HCl Confirm 12/14/18 21:47 Xylocaine 1% Hcl 20 Ml Mdv Administered 12/14/18 21:48 Dose 5 ml .ROUTE .STK-MED ONE - Progress Progress: improved Progress Note: 12/14/18 22:07 3 cm laceration repair right frontal temporal region. Laceration sterilely prepped and draped. Laceration anesthetized with 1% lidocaine. Laceration repaired with 4 5.0 Prolene sutures(interrupted) Also with Steri-Strip medial portion of the laceration times one. Bacitracin applied to the laceration were sutures were. - Departure Departure Disposition: Home Clinical Impression: Facial laceration Qualifiers: Encounter type: initial encounter Qualified Code(s): S01.81XA - Laceration without foreign body of other part of head, initial encounter Head contusion Qualifiers: Encounter type: initial encounter Contusion of head detail: unspecified part of head Qualified Code(s): S00.93XA - Contusion of unspecified part of head, initial encounter Condition: Fair Critical Care Time: No Referrals: NAVIN FUCHS MD [Primary Care Provider] - Instructions: Closed Head Injury (DC) Additional Instructions: Return home. May apply bacitracin to area where sutures are not to area of Steri-Strip until healed. Sutures out in 5 days. Followup with your family DrCarolyn or return if problems. Tylenol every 4 hours as needed for headache. Return for acute distress or for severe symptoms.
[2018-12-14] MEDS ORDERED: XYLOCAINE 1% HCL 20 ML MDV ONE (21:47)
[2018-12-14] MEDS ORDERED: BACIGUENT PACKET ONE (21:47)
[2018-12-14] MEDS ORDERED: TYLENOL 325 MG ONE (21:47)
[2018-12-14 23:21] VITALS: BP 112/71; PULSE 49; O2SAT 97
== END 2018-12-14 23:20 | disposition home or self-care (01) ==
LOC: ED 21:11
DX: S01.81XA Laceration without foreign body of other part of head, initial encounter (principal); S00.93XA Contusion of unspecified part of head, initial encounter; W22.03XA Walked into furniture, initial encounter
CPT/HCPCS: 12013; 90471; 90715; 96372; 99284; A9270-GY

== ENCOUNTER 2019-03-12 09:14 | Emergency (ER) | payer SELFPAY ==
[2019-03-12 09:24] VITALS: BP 118/78; PULSE 93; O2SAT 98
[2019-03-12] MEDS ORDERED: TETRACAINE 0.5% STERI-UNIT SOL OP ONE (09:28)
[2019-03-12] MEDS ORDERED: Fluor-I-Strip/Ful-Flo OP ONE ×2 (09:30→09:33)
--- NOTE | 2019-03-12 09:51 | ERPHSYRPT ---
- History of Present Illness Time Seen by Provider: 03/12/19 09:31 Source: patient Exam Limitations: no limitations Patient Subjective Stated Complaint: Pt was up in a tree hunting and he thinks a small branch got stuck on his hat and swung around and went into his right eye , eye is red and swollen, reports that his head is hurting Triage Nursing Assessment: Pt walked into the ER holding his right eye, can not open it without severe pain and burning, vitals wnl, rates pain 8/10 Physician History: Right eye injury with tree branch, while hunting. Timing/Duration: today Location: right eye Severity: moderate Apparent Injury: yes Associated Symptoms: pain, burning, sensitivity to light, redness, eyelid swelling, foreign body sensation, blurred vision Visual Assistive Devices: None Chemical Exposure: No Allergies/Adverse Reactions: metaxalone [From Skelaxin] Adverse Reaction (Verified 03/12/19 09:24) Nausea Home Medications: Quetiapine Fumarate 100 mg [Seroquel 100 MG] 100 mg PO DAILY 03/12/19 [ History] Hx Tetanus, Diphtheria Vaccination/Date Given: Yes Hx Influenza Vaccination/Date Given: No Hx Pneumococcal Vaccination/Date Given: No - Review of Systems Constitutional: No Fever, No Chills Eyes: Eye Pain, Eye Redness, Photophobia, Tearing, Foreign Body Sensation ( Right eye- Painful, tearing, Erythema roght upper and lower eye lids) Ears, Nose, & Throat: No Symptoms Respiratory: No Cough, No Dyspnea Cardiac: No Chest Pain, No Edema, No Syncope Abdominal/Gastrointestinal: No Abdominal Pain, No Nausea, No Vomiting, No Diarrhea Genitourinary Symptoms: No Dysuria Musculoskeletal: No Back Pain, No Neck Pain Skin: No Rash Neurological: No Dizziness, No Focal Weakness, No Sensory Changes Psychological: No Symptoms Endocrine: No Symptoms All Other Systems: Reviewed and Negative - Past Medical History Pertinent Past Medical History: Yes Neurological History: No Pertinent History ENT History: No Pertinent History Cardiac History: No Pertinent History Respiratory History: No Pertinent History Endocrine Medical History: No Pertinent History Musculoskeletal History: Degenerative Disk Disease, Fractures, Other GI Medical History: GERD, Hernia History: No Pertinent History Psycho-Social History: No Pertinent History Male Reproductive Disorders: No Pertinent History Other Medical History: ACID REFLUX. forametal stenosis - Past Surgical History Past Surgical History: Yes Neuro Surgical History: No Pertinent History Cardiac: No Pertinent History Respiratory: No Pertinent History Gastrointestinal: Appendectomy, Hernia Repair Genitourinary: No Pertinent History Musculoskeletal: Orthopedic Surgery Male Surgical History: No Pertinent History Other Surgical History: shoulder - Social History Smoking Status: Current every day smoker How long have you smoked: 12 years Exposure to second hand smoke: No Drug Use: none Patient Lives Alone: No - Nursing Vital Signs Nursing Vital Signs: Initial Vital Signs Temperature 98.0 F 03/12/19 09:18 Pulse Rate 93 H 03/12/19 09:18 Blood Pressure 118/78 03/12/19 09:18 O2 Sat by Pulse Oximetry 98 03/12/19 09:18 Pain Scale Pain Intensity 8 - Physical Exam General Appearance: no apparent distress Eye Exam: right eye: corneal abrasion, erythema, eyelid injury, bilateral eye: PERRL, EOMI Ears, Nose, Throat Exam: normal ENT inspection Neck Exam: normal inspection, non-tender Respiratory Exam: normal breath sounds, airway intact Cardiovascular Exam: regular rate/rhythm, normal heart sounds Gastrointestinal Exam: soft, normal bowel sounds Extremity Exam: normal inspection, normal range of motion Neurologic: alert, oriented x 3 Skin Exam: other (Erythema right eye lids) Lymphatic: No adenopathy SpO2 Interpretation: normal SpO2: 98 Procedures - Eye Procedure Tetracaine Drops Administered: Yes Progress: Examined with blue light. Corneal abrasion + - Course Nursing assessment & vital signs reviewed: Yes Ordered Tests: Medication Summary Discontinued Medications Generic Name Dose Route Start Last Admin Trade Name Freq PRN Reason Stop Dose Admin Fluorescein Sodium Confirm 03/12/19 09:30 Dyjry-T-Bwqwg/Ful-Raul Administered 03/12/19 09:31 Dose 1 mg OP .STK-MED ONE Fluorescein Sodium Confirm 03/12/19 09:33 Trqbm-I-Kwdqd/Ful-Raul Administered 03/12/19 09:34 Dose 1 mg OP .STK-MED ONE Tetracaine HCl Confirm 03/12/19 09:28 Tetracaine 0.5% Steri-Unit Zena Administered 03/12/19 09:29 Dose 4 ml OP .STK-MED ONE Tetrahydrozoline HCl 1 ml 03/12/19 09:53 Visine Ophthalmic 15 Ml OP 03/12/19 09:54 STAT ONE - Progress Progress: improved Progress Note: 03/12/19 09:59 advised patient to see credentials specialist today only. Patient understood and agreed. Counseled pt/family regarding: need for follow-up (see credentials specialist today) - Departure Departure Disposition: Home Clinical Impression: Corneal abrasion, right Qualifiers: Encounter type: initial encounter Qualified Code(s): S05.01XA - Injury of conjunctiva and corneal abrasion without foreign body, right eye, initial encounter Condition: Stable Critical Care Time: No Referrals: NAVIN FUCHS MD [Primary Care Provider] - Instructions: Corneal Abrasion (DC), Eye Contusion (DC) Forms: Work/School Release Form
[2019-03-12] MEDS: Visine OPHTHALMIC 15 ML OP ONE (10:01)
[2019-03-12] MEDS: TETRACAINE 0.5% STERI-UNIT SOL OP STA (10:08)
[2019-03-12] MEDS: Fluor-I-Strip/Ful-Flo OP ONE (10:08)
== END 2019-03-12 10:15 | disposition home or self-care (01) ==
LOC: ED 09:14
DX: S05.01XA Injury of conjunctiva and corneal abrasion without foreign body, right eye, initial encounter (principal); W22.8XXA Striking against or struck by other objects, initial encounter
CPT/HCPCS: 99283; A9270-GY

== ENCOUNTER 2019-06-20 22:16 | Emergency (ER) | payer MEDICAID ==
[2019-06-20] MEDS ORDERED: Sodium Chloride 0.9% 1000 ML 1,000 ML IV STA (23:07)
--- NOTE | 2019-06-20 23:07 | ERPHSYRPT ---
- History of Present Illness Source: patient, family, EMS, police Exam Limitations: no limitations Patient Subjective Stated Complaint: Patient told automotive service writer that he accidently took 600mg of Serequel instead of taking his trazodone. Patient states he vomited times 2 prior to coming to ER Triage Nursing Assessment: Patient arrived per self. Patient ambulated with steady gait. Patient able to answer questions appropriatley. Patient alert and orientated times 4. Lungs clear bilateral A/P throughout. + BS times 4 quads. ABD soft, flat, non-distended. Patient denies pain or discomfort. Patient cooperative and pleasant. Police arrive to [facility] at 1037 R/T they stated that someone in his household called and stated that patient took a hand full of pills because he wanted to hurt himself. Patient is telling automotive service writer and police that this is not true. Timing/Duration: today Severity of Symptoms-Max: moderate Severity of Symptoms-Current: moderate Context related to: significant other Suicidal thoughts: gesture, ingestion Associated Symptoms: depressed, ingestion, suicidal ideation Previous symptoms: same symptoms as today Hx Tetanus, Diphtheria Vaccination/Date Given: Yes Hx Influenza Vaccination/Date Given: No Hx Pneumococcal Vaccination/Date Given: No Immunizations Up to Date: Yes <CANDICE KURTZ - Last Filed: 06/21/19 05:06> <ALVARO CANALES - Last Filed: 06/21/19 11:26> - History of Present Illness Time Seen by Provider: 06/20/19 23:03 Physician History: girlfriend states that pt tried to kill himself taking seroquel; he denies this but says it was a medication error; first responders relate that this has happened before ; pt is alert but tachcardic (CANDICE KURTZ) Allergies/Adverse Reactions: metaxalone [From Skelaxin] Adverse Reaction (Verified 06/20/19 22:26) Nausea Home Medications: ARIPiprazole [Aripiprazole] 10 mg PO DAILY 06/21/19 [History] Dextroamphetamine/Amphetamine [Adderall 20 mg Tablet] 20 mg PO DAILY 06/21/19 [ History] Prazosin HCl 1 mg PO DAILY PRN 06/21/19 [History] Sertraline HCl [Zoloft] 50 mg PO DAILY 06/21/19 [History] hydrOXYzine HCL [Hydroxyzine HCl] 50 mg PO TID PRN PRN 06/21/19 [History] - Past Medical History Pertinent Past Medical History: Yes Neurological History: No Pertinent History ENT History: No Pertinent History Cardiac History: No Pertinent History Respiratory History: No Pertinent History Endocrine Medical History: No Pertinent History Musculoskeletal History: Degenerative Disk Disease, Fractures, Other GI Medical History: No Pertinent History, GERD, Hernia History: No Pertinent History Psycho-Social History: Attention Deficit Disorder, Depression, Other Male Reproductive Disorders: No Pertinent History Other Medical History: ACID REFLUX, PTSD. forametal stenosis - Past Surgical History Past Surgical History: Yes Neuro Surgical History: No Pertinent History Cardiac: No Pertinent History Respiratory: No Pertinent History Gastrointestinal: Appendectomy, Hernia Repair Genitourinary: No Pertinent History Musculoskeletal: Orthopedic Surgery Male Surgical History: No Pertinent History Other Surgical History: shoulder - Social History Smoking Status: Current every day smoker How long have you smoked: 16 years Exposure to second hand smoke: Yes Drug Use: none Patient Lives Alone: No <CANDICE KURTZ - Last Filed: 06/21/19 05:06> - Review of Systems Constitutional: No Fever, No Chills Eyes: No Symptoms Ears, Nose, & Throat: No Symptoms Respiratory: No Cough, No Dyspnea Cardiac: No Chest Pain, No Edema, No Syncope Abdominal/Gastrointestinal: No Abdominal Pain, No Nausea, No Vomiting, No Diarrhea Genitourinary Symptoms: No Dysuria Musculoskeletal: No Back Pain, No Neck Pain Skin: No Rash Neurological: No Dizziness, No Focal Weakness, No Sensory Changes Psychological: Anxiety, Depression, Suicidal Ideations Endocrine: No Symptoms Hematologic/Lymphatic: No Symptoms Immunological/Allergic: No Symptoms All Other Systems: Reviewed and Negative <CANDICE KURTZ - Last Filed: 06/21/19 05:06> - Physical Exam General Appearance: no apparent distress Eyes, Ears, Nose, Throat Exam: normal ENT inspection, moist mucous membranes Neck Exam: normal inspection, non-tender, supple Respiratory Exam: normal breath sounds, lungs clear, No respiratory distress Cardiovascular Exam: regular rate/rhythm, No edema Gastrointestinal/Abdominal Exam: soft, No tenderness, No distention Extremities Exam: normal inspection, normal range of motion, No evidence of injury, No edema Peripheral Pulses: carotid (R): 2+, carotid (L): 2+, femoral (R): 2+, femoral (L ): 2+, dorsalis-pedis (R): 2+, dorsalis-pedis (L): 2+ Current Suicidality: denies suicide plan Neurological Exam: alert, brinell tester II-XII nml as tested, oriented x 3 Appearance: appropriate appearance, appropriate insight, neat, no memory impairment Behavior/Eye Contact/Speech: alert & cooperative, good eye contact, normal speech Thoughts/Hallucinations: normal thought pattern, no apparent hallucination Skin Exam: normal color, warm, dry, No rash SpO2 Interpretation: normal SpO2: 99 <CANDICE KURTZ - Last Filed: 06/21/19 05:06> - Nursing Vital Signs Nursing Vital Signs: Initial Vital Signs Temperature 98.1 F 06/20/19 22:30 Pulse Rate 106 H 06/20/19 22:30 Respiratory Rate 20 06/20/19 22:30 Blood Pressure 124/80 06/20/19 22:30 O2 Sat by Pulse Oximetry 99 06/20/19 22:30 Pain Scale Pain Intensity 0 - Course Nursing assessment & vital signs reviewed: Yes EKG Interpreted by Me: Sinus Rhythm, Right [place] Deviation, Non-specific ST Changes <CANDICE KURTZ - Last Filed: 06/21/19 05:06> Ordered Tests: Active Orders 24 hr Category Date Time Status Easter Bunny STAT Care 06/20/19 23:09 Active Clean Catch Urine Specimen STAT Care 06/20/19 23:07 Active EKG-ER Only STAT Care 06/20/19 23:07 Active IV Insertion STAT Care 06/20/19 23:07 Active Pulse Oximetry (ED) STAT Care 06/20/19 23:07 Active Psychiatric Consult STAT Cons 06/20/19 23:07 Active ACETAMINOPHEN Stat Lab 06/20/19 23:43 Completed CBC W DIFF Stat Lab 06/20/19 23:43 Completed CMP Stat Lab 06/20/19 23:43 Completed ETHYL ALCOHOL Stat Lab 06/20/19 23:43 Completed Lactic Acid Stat Lab 06/20/19 23:55 Completed SALICYLATE Stat Lab 06/20/19 23:43 Completed TROPONIN Q3H Lab 06/20/19 23:43 Completed UA W/RFX UR CULTURE Stat Lab 06/20/19 23:25 Completed Urine Triage Profile Stat Lab 06/20/19 23:25 Completed Medication Summary Discontinued Medications Generic Name Dose Route Start Last Admin Trade Name Luiz PRN Reason Stop Dose Admin Sodium Chloride 1,000 mls @ 999 mls/hr 06/20/19 23:07 06/21/19 01:39 Sodium Chloride 0.9% 1000 Ml IV 06/21/19 00:07 Infused .Q1H1M STA Infusion Sodium Chloride Confirm 06/20/19 23:28 Sodium Chloride 0.9% 1000 Ml Administered 06/20/19 23:29 Dose 1,000 mls @ ud .ROUTE .STK-MED ONE Lab/Rad Data: Laboratory Result Diagrams 06/20/19 23:43 06/20/19 23:43 Laboratory Results 06/20/19 06/20/19 06/20/19 Range/Units 23:55 23:43 23:43 WBC (4.0-10.5) K/mm3 RBC (4.1-5.6) M/mm3 Hgb (12.5-18.0) gm/dl Hct (42-50) % MCV (78-100) fl MCH (26-32) pg MCHC (32-36) g/dl RDW (11.5-14.0) % Plt Count (150-450) K/mm3 MPV (7.5-11.0) fl Gran % (36.0-66.0) % Eos # (Auto) (0-0.5) Absolute Lymphs (auto) (1.0-4.6) Absolute Monos (auto) (0.0-1.3) Lymphocytes % (24.0-44.0) % Monocytes % (0.0-12.0) % Eosinophils % (0.00-5.0) % Basophils % (0.0-0.4) % Absolute Granulocytes (1.4-6.9) Basophils # (0-0.4) Sodium 140 (137-145) mmol/L Potassium 3.6 (3.5-5.1) mmol/L Chloride 103 (98-107) mmol/L Carbon Dioxide 28 (22-30) mmol/L Anion Gap 12.5 (5-15) MEQ/L BUN 11 (9-20) mg/dL Creatinine 0.80 (0.66-1.25) mg/dL Estimated GFR > 60.0 ML/MIN Glucose 96 (74-106) mg/dL Lactic Acid 1.6 (0.4-2.0) Calcium 9.7 (8.4-10.2) mg/dL Total Bilirubin 0.40 (0.2-1.3) mg/dL AST 22 (17-59) U/L ALT 22 (0-50) U/L Alkaline Phosphatase 57 (38-126) U/L Troponin I < 0.012 (0.000-0.034) ng/mL Serum Total Protein 8.0 (6.3-8.2) g/dL Albumin 4.8 (3.5-5.0) g/dL Urine Color (YELLOW) Urine Appearance (CLEAR) Urine pH (5-6) Ur Specific [place] (1.005-1.025) Urine Protein (Negative) Urine Ketones (NEGATIVE) Urine Blood (0-5) Mani/ul Urine Nitrite (NEGATIVE) Urine Bilirubin (NEGATIVE) Urine Urobilinogen (0-1) mg/dL Ur Leukocyte Esterase (NEGATIVE) Urine WBC (Auto) (0-5) /HPF Urine RBC (Auto) (0-2) /HPF U Epithel Cells (Auto) (FEW) /HPF Urine Bacteria (Auto) (NEGATIVE) /HPF Urine Mucus (Auto) (NEGATIVE) /HPF Urine Culture Reflexed (NO) Urine Glucose (NEGATIVE) mg/dL Salicylates < 1.0 L (2-20) mg/dL Urine Opiates Level (NEGATIVE) Ur Methadone (NEGATIVE) Acetaminophen < 10 L (10-30) ug/ml Urine Barbiturates (NEGATIVE) Ur Phencyclidine (PCP) (NEGATIVE) Urine Amphetamine (NEGATIVE) U Benzodiazepine Level (NEGATIVE) Urine Cocaine (NEGATIVE) Urine Marijuana (THC) (NEGATIVE) Ethyl Alcohol < 10 (0-10) mg/dL 06/20/19 06/20/19 06/20/19 Range/Units 23:43 23:25 23:25 WBC 10.4 (4.0-10.5) K/mm3 RBC 4.80 (4.1-5.6) M/mm3 Hgb 15.2 (12.5-18.0) gm/dl Hct 45.0 (42-50) % MCV 93.8 (78-100) fl MCH 31.7 (26-32) pg MCHC 33.8 (32-36) g/dl RDW 12.6 (11.5-14.0) % Plt Count 278 (150-450) K/mm3 MPV 10.3 (7.5-11.0) fl Gran % 68.9 H (36.0-66.0) % Eos # (Auto) 0.17 (0-0.5) Absolute Lymphs (auto) 2.20 (1.0-4.6) Absolute Monos (auto) 0.85 (0.0-1.3) Lymphocytes % 21.1 L (24.0-44.0) % Monocytes % 8.1 (0.0-12.0) % Eosinophils % 1.6 (0.00-5.0) % Basophils % 0.3 (0.0-0.4) % Absolute Granulocytes 7.18 H (1.4-6.9) Basophils # 0.03 (0-0.4) Sodium (137-145) mmol/L Potassium (3.5-5.1) mmol/L Chloride (98-107) mmol/L Carbon Dioxide (22-30) mmol/L Anion Gap (5-15) MEQ/L BUN (9-20) mg/dL Creatinine (0.66-1.25) mg/dL Estimated GFR ML/MIN Glucose (74-106) mg/dL Lactic Acid (0.4-2.0) Calcium (8.4-10.2) mg/dL Total Bilirubin (0.2-1.3) mg/dL AST (17-59) U/L ALT (0-50) U/L Alkaline Phosphatase (38-126) U/L Troponin I (0.000-0.034) ng/mL Serum Total Protein (6.3-8.2) g/dL Albumin (3.5-5.0) g/dL Urine Color STRAW (YELLOW) Urine Appearance CLEAR (CLEAR) Urine pH 7.0 (5-6) Ur Specific [place] 1.002 (1.005-1.025) Urine Protein NEGATIVE (Negative) Urine Ketones NEGATIVE (NEGATIVE) Urine Blood NEGATIVE (0-5) Mani/ul Urine Nitrite NEGATIVE (NEGATIVE) Urine Bilirubin NEGATIVE (NEGATIVE) Urine Urobilinogen NEGATIVE (0-1) mg/dL Ur Leukocyte Esterase NEGATIVE (NEGATIVE) Urine WBC (Auto) NONE (0-5) /HPF Urine RBC (Auto) NONE (0-2) /HPF U Epithel Cells (Auto) NONE (FEW) /HPF Urine Bacteria (Auto) NONE (NEGATIVE) /HPF Urine Mucus (Auto) SLIGHT (NEGATIVE) /HPF Urine Culture Reflexed NO (NO) Urine Glucose NEGATIVE (NEGATIVE) mg/dL Salicylates (2-20) mg/dL Urine Opiates Level NEGATIVE (NEGATIVE) Ur Methadone NEGATIVE (NEGATIVE) Acetaminophen (10-30) ug/ml Urine Barbiturates NEGATIVE (NEGATIVE) Ur Phencyclidine (PCP) NEGATIVE (NEGATIVE) Urine Amphetamine NEGATIVE (NEGATIVE) U Benzodiazepine Level NEGATIVE (NEGATIVE) Urine Cocaine NEGATIVE (NEGATIVE) Urine Marijuana (THC) NEGATIVE (NEGATIVE) Ethyl Alcohol (0-10) mg/dL - Progress Progress: improved, re-examined Counseled pt/family regarding: lab results, diagnosis, need for follow-up <CANDICE KURTZ - Last Filed: 06/21/19 05:06> <ALVARO CANALES - Last Filed: 06/21/19 11:26> - Progress Progress Note: 06/21/19 02:24 the [facility] could not do eval until after the monitoring period is finished as requested by poison control; Alex [facility] then declined admission here due to not being a psych facility; We will have no choice but to continue to monitor here in ER until medically cleared , then attempt transfer to an accepting psych facility; this will require several hours of monitoring ( at least 8 , per PC, but [facility] will not eval until after 0830 ( 12 hours ) per there policy; 06/21/19 05:[address] Canales at change of shift for final dispo after discussion of case , since telemental is still pending at that time; (CANDICE KURTZ) The [facility] staff did a telepsych evaluation and determined that he is not suicidal. The exact details of what transpired prior to his arrival here are still somewhat a mystery, but he is in good spirts and physical health and wants to go home. Pauline Canela [facility] did the telepsych eval. and has recommended that he go home. He contracted for safety with her. Her diagnosis is general anxiety disorder. He has a therapy appt. tomorrow. - Dr. Canales. 06/21/19 11:21 (ALVARO CANALES) <CANDICE KURTZ - Last Filed: 06/21/19 05:06> - Departure Departure Disposition: Home Critical Care Time: No <ALVARO CANALES - Last Filed: 06/21/19 11:26> - Departure Clinical Impression: PTSD (post-traumatic stress disorder), Generalized anxiety disorder Condition: Stable Referrals: NAVIN FUCHS MD [Primary Care Provider] - Additional Instructions: Go to your therapy session tomorrow as scheduled. Seek further medical treatment if needed.
[2019-06-20] MEDS ORDERED: Sodium Chloride 0.9% 1000 ML 1,000 ML ONE (23:28)
[2019-06-20 23:44] LABS: Absolute Neutrophil Ct (ANC) 7.18 (1.4-6.9); BASOPHIL % 0.3 % (0.0-0.4); Basophil (Absolute #) 0.03 (0-0.4); Eosinophil % 1.6 % (0.00-5.0); Eosinophil (Absolute #) 0.17 (0-0.5); Hemoglobin 15.2 gm/dl (12.5-18.0); Lymphocytes % 21.1 % (24.0-44.0); Mean Cell Volume 93.8 fl (78-100); Mean Corpuscular Hemoglobin 31.7 pg (26-32); Mean Corpuscular Hgb Concent. 33.8 g/dl (32-36); Mean Platelet Volume 10.3 fl (7.5-11.0); Monocyte (Absolute #) 0.85 (0.0-1.3); Monocytes % 8.1 % (0.0-12.0); Neutrophil % 68.9 % (36.0-66.0); Platelet Count 278 K/mm3 (150-450); Red Cell Distribution Width 12.6 % (11.5-14.0); White Blood Count 10.4 K/mm3 (4.0-10.5)
[2019-06-20 23:50] LABS: Appearance CLEAR (CLEAR); Bilirubin NEGATIVE (NEGATIVE); Blood NEGATIVE Ery/ul (0-5); Glucose NEGATIVE (NEGATIVE); Ketones NEGATIVE (NEGATIVE); Leukocyte Esterase NEGATIVE (NEGATIVE); Mucus SLIGHT /HPF (NEGATIVE); Nitrite NEGATIVE (NEGATIVE); Protein,Urine Dip NEGATIVE (Negative); Specific Gravity 1.002 (1.005-1.025); Urobilinogen NEGATIVE mg/dL (0-1)
[2019-06-20 23:56] LABS: ALBUMIN 4.8 g/dL (3.5-5.0); ALKALINE PHOSPHATASE 57 U/L (38-126); ANION GAP 12.5 MEQ/L (5-15); BLOOD UREA NITROGEN 11 mg/dL (9-20); CHLORIDE 103 mmol/L (98-107); Calcium 9.7 mg/dL (8.4-10.2); Carbon Dioxide 28 mmol/L (22-30); Glucose 96 mg/dL (74-106); Potassium 3.6 mmol/L (3.5-5.1); SGOT/AST 22 U/L (17-59); SGPT/ALT 22 U/L (0-50); SODIUM 140 mmol/L (137-145)
[2019-06-20 23:59] LABS: ACETAMINOPHEN < 10 ug/ml (10-30); ETHYL ALCOHOL < 10 mg/dL (0-10); SALICYLATE < 1.0 mg/dL (2-20)
[2019-06-21 00:04] LABS: Amphetamine,Urine NEGATIVE (NEGATIVE); Barbiturate,Urine NEGATIVE (NEGATIVE); Benzodiazepine,Urine NEGATIVE (NEGATIVE); Cocaine,Urine NEGATIVE (NEGATIVE); Methadone,Urine NEGATIVE (NEGATIVE); Opiate,Urine NEGATIVE (NEGATIVE); PCP,Urine NEGATIVE (NEGATIVE); THC,Urine NEGATIVE (NEGATIVE)
[2019-06-21 09:32] VITALS: O2SAT 98
[2019-06-21 09:53] VITALS: BP 137/84; PULSE 98
== END 2019-06-21 09:54 | disposition home or self-care (01) ==
LOC: ED 22:16
DX: F43.10 Post-traumatic stress disorder, unspecified (principal); F41.9 Anxiety disorder, unspecified; T50.991A Poisoning by other drugs, medicaments and biological substances, accidental (unintentional), initial encounter; R45.851 Suicidal ideations; Z79.899 Other long term (current) drug therapy
CPT/HCPCS: 36000; 36415; 80053; 80307; 81001; 83605; 84484; 85025; 90791; 93005; 93041; 94760; 96360; 99285; G0481; Q3014; G0480

== ENCOUNTER 2019-06-22 23:15 | Emergency (ER) | payer MEDICAID ==
--- NOTE | 2019-06-22 23:37 | ERPHSYRPT ---
- History of Present Illness Time Seen by Provider: 06/22/19 23:36 Source: patient Exam Limitations: no limitations Patient Subjective Stated Complaint: pt states, "I passed out twice today and I' m having a terrible headache now". Triage Nursing Assessment: pt arrived by EMS, states, "I passed out twice today at 2130 and 2245". pt felt lightheaded and dizzy prior to these occurances, vomited x1 after second syncopal episode. Pt c/o both ears ringing. Pt states , "My fingers and feet both feel bakari". Pt is alert and oriented x3, cooperative. pt unsure is he hit his head or not. Pt c/o headache to rt temporal area and behind rt eye, c/o pain to rt shoulder. Physician History: This is a 29-year-old white male who is on several medicines for psychiatric issues and insomnia and presents with an episode of what he believes is syncope followed by dizziness and headache. Patient denies head trauma. Patient denies illicit drug use. At age [age] years old, the patient did have a petit mall seizure. During this evenings episode, the patient did not soil himself. He did have some nausea and vomiting x1 episode prior to arrival. Patient is under more stress than usual. The patient and his longtime girlfriend have broken up. This occurred 2 days ago. There are no new medications that the patient is on. Patient denies hallucinations of any kind. Patient denies suicidal or homicidal ideation. Timing/Duration: hour(s) (Approximately 2 to 3 hours ago), improved Severity: moderate Character of Deficits: none Deficits: no difficulties Baseline/Normal Cognition: alert oriented x 3 Current Cognition: alert oriented x 3 Associated Symptoms: nausea, vomiting Allergies/Adverse Reactions: metaxalone [From Skelaxin] Adverse Reaction (Verified 06/22/19 23:29) Nausea Home Medications: ARIPiprazole [Aripiprazole] 10 mg PO DAILY 06/21/19 [History] Dextroamphetamine/Amphetamine [Adderall 20 mg Tablet] 20 mg PO DAILY 06/21/19 [ History] Prazosin HCl 1 mg PO DAILY PRN 06/21/19 [History] Sertraline HCl [Zoloft] 50 mg PO DAILY 06/21/19 [History] hydrOXYzine HCL [Hydroxyzine HCl] 50 mg PO TID PRN PRN 06/21/19 [History] Trazodone HCl 50 mg [Desyrel 50 mg] 150 mg PO HS 06/22/19 [History] Hx Tetanus, Diphtheria Vaccination/Date Given: Yes Hx Influenza Vaccination/Date Given: No Hx Pneumococcal Vaccination/Date Given: No Immunizations Up to Date: Yes - Review of Systems Constitutional: No Symptoms Eyes: No Symptoms Ears, Nose, & Throat: No Symptoms Respiratory: No Symptoms Cardiac: No Symptoms Abdominal/Gastrointestinal: No Symptoms Genitourinary Symptoms: No Symptoms Musculoskeletal: No Symptoms Skin: No Symptoms Neurological: Dizziness, Headache Psychological: No Symptoms Endocrine: No Symptoms Hematologic/Lymphatic: No Symptoms Immunological/Allergic: No Symptoms All Other Systems: Reviewed and Negative - Past Medical History Pertinent Past Medical History: Yes Neurological History: No Pertinent History ENT History: No Pertinent History Cardiac History: No Pertinent History Respiratory History: No Pertinent History Endocrine Medical History: No Pertinent History Musculoskeletal History: Degenerative Disk Disease, Fractures, Other GI Medical History: GERD, Hernia History: No Pertinent History Psycho-Social History: Attention Deficit Disorder, Depression, Other Male Reproductive Disorders: No Pertinent History Other Medical History: ACID REFLUX, PTSD. forametal stenosis - Past Surgical History Past Surgical History: Yes Neuro Surgical History: No Pertinent History Cardiac: No Pertinent History Respiratory: No Pertinent History Gastrointestinal: Appendectomy, Hernia Repair Genitourinary: No Pertinent History Musculoskeletal: Orthopedic Surgery Male Surgical History: No Pertinent History Other Surgical History: rt shoulder surgery arthroscopic - Social History Smoking Status: Current every day smoker How long have you smoked: 15 yrs Exposure to second hand smoke: Yes Drug Use: none Patient Lives Alone: No (kids per visitation) - Nursing Vital Signs Nursing Vital Signs: Initial Vital Signs Temperature 98.0 F 06/22/19 23:18 Pulse Rate 90 06/22/19 23:18 Respiratory Rate 16 06/22/19 23:18 Blood Pressure 117/83 06/22/19 23:18 O2 Sat by Pulse Oximetry 97 06/22/19 23:18 Pain Scale Pain Intensity 7 - Kennedy Coma Scale Best Eye Response (Kennedy): (4) open spontaneously Best Verbal Response ([place]): (5) oriented Best Motor Response (Kennedy): (6) obeys commands Kennedy Total: 15 - Physical Exam General Appearance: no apparent distress, alert, anxiety Eye Exam: bilateral eye: normal inspection, PERRL, EOMI Ears, Nose, Throat Exam: normal ENT inspection, moist mucous membranes Neck Exam: normal inspection, non-tender, supple, full range of motion Respiratory: normal breath sounds, lungs clear, airway intact, No chest tenderness, No respiratory distress Cardiovascular: regular rate/rhythm, normal heart sounds, normal peripheral pulses Gastrointestinal: soft, normal bowel sounds, No tenderness Rectal Exam: not done Back Exam: normal inspection, normal range of motion, No CVA tenderness, No vertebral tenderness Extremity Exam: normal inspection, normal range of motion, pelvis stable Mental Status: alert, oriented x 3, cooperative personal support worker Exam: normal hearing, normal speech, PERRL, tongue midline Coordination/Gait: normal finger to nose, normal gait, normal cerebellar function Motor/Sensory: no motor deficit, no sensory deficit Skin Exam: normal color, warm, dry SpO2 Interpretation: normal SpO2: 97 O2 Delivery: Room Air - Course Nursing assessment & vital signs reviewed: Yes EKG Interpreted by Me: RATE (77), Sinus Rhythm, Right [place] Deviation, NORMAL INTERVALS, NORMAL QRS, Other (There are no acute findings on this EKG. There are no changes from the prior EKG dated June 20, 2019) Ordered Tests: Active Orders 24 hr Category Date Time Status Clean Catch Urine Specimen STAT Care 06/23/19 00:18 Active EKG-ER Only STAT Care 06/22/19 23:37 Active IV Insertion STAT Care 06/22/19 23:37 Active Pulse Oximetry (ED) STAT Care 06/22/19 23:37 Active HEAD WITHOUT CONTRAST [CT] Stat Exams 06/22/19 23:37 Taken CBC W DIFF Stat Lab 06/22/19 23:50 Completed CMP Stat Lab 06/22/19 23:50 Completed ETHYL ALCOHOL Stat Lab 06/22/19 23:50 Completed UA W/RFX UR CULTURE Stat Lab 06/22/19 23:40 Completed Urine Triage Profile Stat Lab 06/23/19 00:20 Completed Medication Summary Discontinued Medications Generic Name Dose Route Start Last Admin Trade Name Freq PRN Reason Stop Dose Admin Sodium Chloride Confirm 06/23/19 00:38 Sodium Chloride 0.9% 1000 Ml Administered 06/23/19 00:39 Dose 1,000 mls @ [facility] Lab/Rad Data: Laboratory Result Diagrams 06/22/19 23:50 06/22/19 23:50 Laboratory Results 06/23/19 06/22/19 06/22/19 Range/Units 00:20 23:50 23:50 WBC 9.6 (4.0-10.5) K/mm3 RBC 4.42 (4.1-5.6) M/mm3 Hgb 14.1 (12.5-18.0) gm/dl Hct 41.7 L (42-50) % MCV 94.3 (78-100) fl MCH 31.9 (26-32) pg MCHC 33.8 (32-36) g/dl RDW 12.5 (11.5-14.0) % Plt Count 265 (150-450) K/mm3 MPV 9.7 (7.5-11.0) fl Gran % 61.8 (36.0-66.0) % Eos # (Auto) 0.28 (0-0.5) Absolute Lymphs (auto) 2.47 (1.0-4.6) Absolute Monos (auto) 0.92 (0.0-1.3) Lymphocytes % 25.6 (24.0-44.0) % Monocytes % 9.5 (0.0-12.0) % Eosinophils % 2.9 (0.00-5.0) % Basophils % 0.2 (0.0-0.4) % Absolute Granulocytes 5.95 (1.4-6.9) Basophils # 0.02 (0-0.4) Sodium 139 (137-145) mmol/L Potassium 3.5 (3.5-5.1) mmol/L Chloride 106 (98-107) mmol/L Carbon Dioxide 26 (22-30) mmol/L Anion Gap 10.9 (5-15) MEQ/L BUN 12 (9-20) mg/dL Creatinine 0.79 (0.66-1.25) mg/dL Estimated GFR > 60.0 ML/MIN Glucose 92 (74-106) mg/dL Calcium 9.0 (8.4-10.2) mg/dL Total Bilirubin 0.60 (0.2-1.3) mg/dL AST 19 (17-59) U/L ALT 19 (0-50) U/L Alkaline Phosphatase 54 (38-126) U/L Serum Total Protein 6.9 (6.3-8.2) g/dL Albumin 4.1 (3.5-5.0) g/dL Urine Color (YELLOW) Urine Appearance (CLEAR) Urine pH (5-6) Ur Specific [place] (1.005-1.025) Urine Protein (Negative) Urine Ketones (NEGATIVE) Urine Blood (0-5) Mani/ul Urine Nitrite (NEGATIVE) Urine Bilirubin (NEGATIVE) Urine Urobilinogen (0-1) mg/dL Ur Leukocyte Esterase (NEGATIVE) Urine WBC (Auto) (0-5) /HPF Urine RBC (Auto) (0-2) /HPF U Hyaline Cast (Auto) (0-2) /LPF Urine Mucus (Auto) (NEGATIVE) /HPF Urine Culture Reflexed (NO) Urine Glucose (NEGATIVE) mg/dL Urine Opiates Level NEGATIVE (NEGATIVE) Ur Methadone NEGATIVE (NEGATIVE) Urine Barbiturates NEGATIVE (NEGATIVE) Ur Phencyclidine (PCP) NEGATIVE (NEGATIVE) Urine Amphetamine NEGATIVE (NEGATIVE) U Benzodiazepine Level NEGATIVE (NEGATIVE) Urine Cocaine NEGATIVE (NEGATIVE) Urine Marijuana (THC) NEGATIVE (NEGATIVE) Ethyl Alcohol < 10 (0-10) mg/dL 06/22/19 Range/Units 23:40 WBC (4.0-10.5) K/mm3 RBC (4.1-5.6) M/mm3 Hgb (12.5-18.0) gm/dl Hct (42-50) % MCV (78-100) fl MCH (26-32) pg MCHC (32-36) g/dl RDW (11.5-14.0) % Plt Count (150-450) K/mm3 MPV (7.5-11.0) fl Gran % (36.0-66.0) % Eos # (Auto) (0-0.5) Absolute Lymphs (auto) (1.0-4.6) Absolute Monos (auto) (0.0-1.3) Lymphocytes % (24.0-44.0) % Monocytes % (0.0-12.0) % Eosinophils % (0.00-5.0) % Basophils % (0.0-0.4) % Absolute Granulocytes (1.4-6.9) Basophils # (0-0.4) Sodium (137-145) mmol/L Potassium (3.5-5.1) mmol/L Chloride (98-107) mmol/L Carbon Dioxide (22-30) mmol/L Anion Gap (5-15) MEQ/L BUN (9-20) mg/dL Creatinine (0.66-1.25) mg/dL Estimated GFR ML/MIN Glucose (74-106) mg/dL Calcium (8.4-10.2) mg/dL Total Bilirubin (0.2-1.3) mg/dL AST (17-59) U/L ALT (0-50) U/L Alkaline Phosphatase (38-126) U/L Serum Total Protein (6.3-8.2) g/dL Albumin (3.5-5.0) g/dL Urine Color YELLOW (YELLOW) Urine Appearance SLIGHTLY CLOUDY (CLEAR) Urine pH 6.0 (5-6) Ur Specific [place] 1.023 (1.005-1.025) Urine Protein NEGATIVE (Negative) Urine Ketones TRACE (NEGATIVE) Urine Blood NEGATIVE (0-5) Mani/ul Urine Nitrite NEGATIVE (NEGATIVE) Urine Bilirubin NEGATIVE (NEGATIVE) Urine Urobilinogen 4 (0-1) mg/dL Ur Leukocyte Esterase NEGATIVE (NEGATIVE) Urine WBC (Auto) 3-5 (0-5) /HPF Urine RBC (Auto) 11-15 (0-2) /HPF U Hyaline Cast (Auto) 0-2 (0-2) /LPF Urine Mucus (Auto) MANY (NEGATIVE) /HPF Urine Culture Reflexed NO (NO) Urine Glucose NEGATIVE (NEGATIVE) mg/dL Urine Opiates Level (NEGATIVE) Ur Methadone (NEGATIVE) Urine Barbiturates (NEGATIVE) Ur Phencyclidine (PCP) (NEGATIVE) Urine Amphetamine (NEGATIVE) U Benzodiazepine Level (NEGATIVE) Urine Cocaine (NEGATIVE) Urine Marijuana (THC) (NEGATIVE) Ethyl Alcohol (0-10) mg/dL - Progress Progress: improved Progress Note: 06/23/19 00:52 CAT scan of the head shows no acute intracranial process. 06/23/19 00:53 Medical decision making: This patient work-up is not revealing any acute emergent process. Patient shows mild dehydration on his urinalysis. His symptoms may be related to the new stress he is experiencing. Symptoms possibly could have been a brief petit mal seizure. We will provide the patient with IV normal saline as well as a milligram of intravenous Ativan. We , together, have opted for the patient to contact his primary care physician office for referral to a neurologist and psychiatrist as needed. Counseled pt/family regarding: lab results, diagnosis, need for follow-up, rad results - Departure Departure Disposition: Home Clinical Impression: Episode of syncope, Headache, Dizziness Condition: Stable Critical Care Time: No Referrals: NAVIN FUCHS MD [Primary Care Provider] - Additional Instructions: Take your medication as prescribed. Call your primary care doctor's office tomorrow to arrange a follow-up appointment as well as possible referral to a neurologist and or psychiatrist as indicated.
[2019-06-22 23:56] LABS: Absolute Neutrophil Ct (ANC) 5.95 (1.4-6.9); BASOPHIL % 0.2 % (0.0-0.4); Basophil (Absolute #) 0.02 (0-0.4); Eosinophil % 2.9 % (0.00-5.0); Eosinophil (Absolute #) 0.28 (0-0.5); Hematocrit 41.7 % (42-50); Hemoglobin 14.1 gm/dl (12.5-18.0); Lymphocyte (Absolute #) 2.47 (1.0-4.6); Lymphocytes % 25.6 % (24.0-44.0); Mean Cell Volume 94.3 fl (78-100); Mean Corpuscular Hemoglobin 31.9 pg (26-32); Mean Corpuscular Hgb Concent. 33.8 g/dl (32-36); Mean Platelet Volume 9.7 fl (7.5-11.0); Monocyte (Absolute #) 0.92 (0.0-1.3); Monocytes % 9.5 % (0.0-12.0); Neutrophil % 61.8 % (36.0-66.0); Platelet Count 265 K/mm3 (150-450); Red Blood Count 4.42 M/mm3 (4.1-5.6); Red Cell Distribution Width 12.5 % (11.5-14.0); White Blood Count 9.6 K/mm3 (4.0-10.5)
[2019-06-23 00:02] LABS: Appearance SLIGHTLY CLOUDY (CLEAR); Bilirubin NEGATIVE (NEGATIVE); Blood NEGATIVE Ery/ul (0-5); Glucose NEGATIVE (NEGATIVE); Hyaline Casts 0-2 /LPF (0-2); Ketones TRACE (NEGATIVE); Leukocyte Esterase NEGATIVE (NEGATIVE); Mucus MANY /HPF (NEGATIVE); Nitrite NEGATIVE (NEGATIVE); Protein,Urine Dip NEGATIVE (Negative); Specific Gravity 1.023 (1.005-1.025); Urobilinogen 4 mg/dL (0-1)
[2019-06-23 00:07] LABS: ALBUMIN 4.1 g/dL (3.5-5.0); ALKALINE PHOSPHATASE 54 U/L (38-126); ANION GAP 10.9 MEQ/L (5-15); BLOOD UREA NITROGEN 12 mg/dL (9-20); CHLORIDE 106 mmol/L (98-107); Carbon Dioxide 26 mmol/L (22-30); Creatinine 1 0.79 mg/dL (0.66-1.25); Glucose 92 mg/dL (74-106); Potassium 3.5 mmol/L (3.5-5.1); SGOT/AST 19 U/L (17-59); SGPT/ALT 19 U/L (0-50); SODIUM 139 mmol/L (137-145); Total Protein 6.9 g/dL (6.3-8.2)
[2019-06-23 00:11] LABS: ETHYL ALCOHOL < 10 mg/dL (0-10)
[2019-06-23] MEDS ORDERED: Sodium Chloride 0.9% 1000 ML 0 ML ONE (00:38)
[2019-06-23 00:40] LABS: Amphetamine,Urine NEGATIVE (NEGATIVE); Barbiturate,Urine NEGATIVE (NEGATIVE); Benzodiazepine,Urine NEGATIVE (NEGATIVE); Cocaine,Urine NEGATIVE (NEGATIVE); Methadone,Urine NEGATIVE (NEGATIVE); Opiate,Urine NEGATIVE (NEGATIVE); PCP,Urine NEGATIVE (NEGATIVE); THC,Urine NEGATIVE (NEGATIVE)
[2019-06-23] MEDS ORDERED: Ativan 2 MG/1 ML VIAL IV ONE (00:42)
[2019-06-23] MEDS ORDERED: Sodium Chloride 0.9% 1000 ML 1,000 ML IV STA (00:42)
[2019-06-23] MEDS ORDERED: Sodium Chloride 0.9% 1000 ML 1,000 ML ONE (00:47)
[2019-06-23] MEDS ORDERED: Ativan 2 MG/1 ML VIAL ONE (00:47)
[2019-06-23 01:56] VITALS: BP 114/75; PULSE 77; O2SAT 97
--- NOTE | 2019-06-23 09:19 | XRAY ---
Indication: Dizziness and lightheaded. Temporal and retro-orbital headache. Syncope. Emesis. Multiple contiguous axial images obtained through the head without contrast. Comparison: April 01, 2013. Again normal appearing brain parenchyma, ventricles, and bony calvarium. Visualized paranasal sinuses and mastoid air cells are clear. Impression: Continued normal CT head without contrast exam. Comment: Preliminary interpretation was made by [facility]. No discrepancy.
== END 2019-06-23 01:57 | disposition home or self-care (01) ==
LOC: ED 23:15
DX: R55 Syncope and collapse (principal); R51 Headache; R42 Dizziness and giddiness; Z79.899 Other long term (current) drug therapy
CPT/HCPCS: 36000; 36415; 70450; 80053; 80307; 81001; 85025; 93005; 94760; 96374; 99284; J2060; G0480